=== PATIENT | female | born 1970 | race Caucasian/White ===

== ENCOUNTER 2023-08-01 08:04 | Emergency (ER) | payer OTHER ==
[2023-08-01] MEDS ORDERED: FAMOTIDINE 20 MG/2 ML VIAL IV ONE (09:10)
[2023-08-01] MEDS ORDERED: MORPHINE 4 MG/ML SYR ONE (09:10)
[2023-08-01] MEDS ORDERED: ONDANSETRON 4 MG/2 ML VIAL ONE (09:10)
[2023-08-01] MEDS ORDERED: NA CHLORIDE 0.9% 1,000 ML ONE (09:10)
[2023-08-01] MEDS ORDERED: DICYCLOMINE HCL 10 MG CAP ONE (09:10)
[2023-08-01 09:33] LABS: Specific Gravity 1.027 (1.005-1.030); Transitional Epithelial <5 /HPF (None Seen); Urine Bacteria 20-50 /HPF (<20); Urine Bilirubin NEGATIVE (Negative); Urine Blood 1+ (Negative); Urine Clarity Extremely Turbid (Clear); Urine Color Yellow (Yellow); Urine Glucose NEGATIVE (Negative); Urine Mucus Slight /HPF (None Seen); Urine Protein TRACE (Negative); Urine Urobilinogen Normal (Normal); Urine pH 5.5 (5.0-7.0)
[2023-08-01] MEDS ORDERED: CEFTRIAXONE 1000 MG/VIAL ONE (10:07)
--- NOTE | 2023-08-01 10:36 | RAD REPORT ---
EXAM DESCRIPTION: CTAbdomen Pelvis Wo Contrast - 08/01/2023 10:23 am CLINICAL HISTORY: ABD PAIN COMPARISON: No comparisons TECHNIQUE: CT of the abdomen and pelvis was performed. All CT scans are performed using dose optimization technique as appropriate and may include automated exposure control or mA/KV adjustment according to patient size. FINDINGS: Lower chest: No acute abnormality. Liver: Hepatic steatosis Biliary: No biliary ductal dilatation. Stomach: No significant focal abnormality. Duodenum: No significant focal abnormality. Pancreas: No significant abnormality. Spleen: No significant abnormality. Adrenal: No suspicious lesions. Kidney/ureter: No hydronephrosis. Bilateral punctate renal calculi. No definite ureteral calculi iden tified. There are several calcifications along the course of the left ureter that are favored to repr esent phleboliths. Retroperitoneum: No retroperitoneal adenopathy. Vascular: No aneurysm. Bowel: Scattered colonic diverticula. No evidence of acute diverticulitis. No bowel obstruction. Norm al appendix.. Liquid stool present within the ascending and transverse colon which is nonspecific. Mi ld wall thickening versus underdistention of the sigmoid colon rectum. Peritoneum: No ascites or free air. Tiny fat containing umbilical hernia. Bladder: Grossly unremarkable. Reproductive: No adnexal masses. Bones: No acute fracture. Other: n/a IMPRESSION: Bilateral nonobstructive nephrolithiasis. No definite ureteral calculi. Calcifications a long the course of the left ureter favored phleboliths. Normal appendix. Questionable mild colitis.
--- NOTE | 2023-08-01 11:46 | ER ---
Nurse's Notes [facility] Name: Nadiya Good Age: 53 yrs Sex: Female : 1970 Arrival Date: 08/01/2023 Time: 08:04 Bed 3 Private MD: Diagnosis: Unspecified renal colic;Left sided colitis Presentation: 08/01 08:17 Chief complaint: Left upper abdominal pain that radiates to left back and N/V/D since hb this morning. Denies fever. Coronavirus screen: Client presents with at least one sign or symptom that may indicate coronavirus-19. Provider contacted for isolation considerations. Ebola Screen: No symptoms or risks identified at this time. Initial Sepsis Screen: Does the patient meet any 2 criteria? No. Patient's initial sepsis screen is negative. Does the patient have a suspected source of infection? No. Patient's initial sepsis screen is negative. Risk Assessment: Do you want to hurt yourself or someone else? Patient reports no desire to harm self or others. Onset of symptoms was August 01, 2023. 08:17 Method Of Arrival: Ambulatory hb 08:17 Acuity: LUZ MARIA 3 hb Triage Assessment: 08:20 General: Appears in no apparent distress. Behavior is calm, cooperative. Pain: Pain hb currently is 3 out of 10 on a pain scale. at worst was 8 out of 10 on a pain scale. Neuro: Level of Consciousness is awake, alert, obeys commands, Oriented to person, place, time, situation. Cardiovascular: Patient's skin is warm and dry. Respiratory: Respiratory effort is even, unlabored, Respiratory pattern is regular, symmetrical. Historical: - Allergies: 08:18 No Known Allergies; hb - Home Meds: 08:18 None [Active]; hb - PMHx: 08:18 None; hb - Immunization history:: Adult Immunizations up to date. - Social history:: Smoking status: Patient denies any tobacco usage or history of. Patient/guardian denies using alcohol. Screenin:24 [facility] ED Fall Risk Assessment (Adult) History of falling in the last 3 months, ld1 including since admission No falls in past 3 months (0 pts). Abuse screen: Denies threats or abuse. Denies injuries from another. Nutritional screening: No deficits noted. Tuberculosis screening: No symptoms or risk factors identified. Assessment: 09:24 General: Appears in no apparent distress. comfortable, Behavior is calm, cooperative, ld1 appropriate for age. Pain: Complains of pain in left upper quadrant and left lower quadrant Pain does not radiate. Pain currently is 7 out of 10 on a pain scale. Quality of pain is described as sharp, throbbing, Pain began 3 hours ago. Is continuous. Neuro: Level of Consciousness is awake, alert, obeys commands, Oriented to person, place, time, situation. Cardiovascular: Capillary refill < 3 seconds Patient's skin is warm and dry. Respiratory: Airway is patent Respiratory effort is even, unlabored. GI: Abdomen is flat, non-distended, Bowel sounds present X 4 quads. Abd is soft Abdomen is tender to palpation in left upper quadrant and left lower quadrant Reports lower abdominal pain, upper abdominal pain, diarrhea. : No signs and/or symptoms were reported regarding the genitourinary system. EENT: No signs and/or symptoms were reported regarding the EENT system. Derm: No signs and/or symptoms reported regarding the dermatologic system. Musculoskeletal: No signs and/or symptoms reported regarding the musculoskeletal system. 10:17 Reassessment: Missed attempted at IV access to provide blood work. Notified ERP. ERP ld1 states "we will hold off on blood work until we receive CT results.". Vital Signs: 08:18 BP 109 / 88; Pulse 92; Resp 16; Temp 97.3(TE); Pulse Ox 97% on R/A; Weight 67.59 kg; hb Height 5 ft. 4 in. ; Pain 3/10; 09:24 BP 124 / 86; Pulse 83; Resp 18; Pulse Ox 98% on R/A; Pain 7/10; ld1 11:10 BP 112 / 72; Pulse 71; Resp 18; Pulse Ox 97% on R/A; ld1 08:18 Body Mass Index 25.58 (67.59 kg, 162.56 cm) hb 08:18 Pain Scale: Adult hb 09:24 Pain Scale: Adult ld1 ED Course: 08:12 Patient arrived in ED. mg5 08:14 Daniella Bardales FNP-C is PHCP. snw 08:14 Hipolito Berry MD is Attending Physician. snw 08:15 Daniella Bardales FNP-C is PHCP. snw 08:18 Triage completed. hb 08:18 Arm band placed on. hb 09:24 Nathalia Rodriguez, RN is Primary Nurse. ld1 09:24 Patient has correct armband on for positive identification. Placed in gown. Bed in low ld1 position. Call light in reach. Side rails up X2. Pulse ox on. NIBP on. Door closed. Noise minimized. Warm blanket given. 09:24 Urinalysis w/ reflexes Sent. ld1 09:24 Missed attempt(s): 20 gauge in left antecubital area. ld1 09:24 Missed attempt(s): 22 gauge in right forearm. ld1 09:24 No provider procedures requiring assistance completed. ld1 10:17 Missed attempt(s): 22 gauge in right antecubital area. ld1 10:24 Abdomen In Process Unspecified. EDMS Administered Medications: 09:24 Drug: Dicyclomine PO 20 mg PO once Route: PO; ld1 09:38 Drug: NS 0.9% IV 1000 ml IV at 1 bolus Per protocol; 1000 mL bolus Route: IV; Rate: 1 ld1 bolus; Site: left wrist; 09:38 Drug: Famotidine IVP 20 mg IVP once; dilute with 10 mL 0.9% NaCl; give over 2 minutes ld1 Route: IVP; Site: left wrist; 09:38 Drug: Ondansetron IVP 4 mg IVP once; over 2 minutes Route: IVP; Site: left wrist; ld1 09:38 Drug: morphine IVP or IV 4 mg IVP once over 4 mins Route: IVP; Infused Over: 4 mins; ld1 Site: left wrist; 09:54 Drug: Rocephin IV 1 grams IV at calculated rate once; Given slow IV push per pharmacy ld1 instructions Route: IV; Rate: calculated rate; Site: left wrist; Medication: 09:24 VIS not applicable for this client. ld1 Outcome: 11:45 Discharge ordered by . miguel 12:30 Patient left the ED. hb Signatures: Dispatcher [employer] EDMS Daniella Bardales FNP-C LINING MARKER-Csnw Chanelle Roberto RN RN Nathalia Rodriguez, IMELDA RN ld1 Maile Agrawal mg5 Corrections: (The following items were deleted from the chart) 08:20 08:17 Chief complaint: Left upper abdominal pain and N/V/D since this morning. Denies hb fever. hb
--- NOTE | 2023-08-01 11:46 | EDPHYS ---
Physician Documentation [facility] Name: Nadiya Good Age: 53 yrs Sex: Female : 1970 Arrival Date: 08/01/2023 Time: 08:04 Bed 3 Private MD: ED Physician Hipolito Berry HPI: 08/01 10:10 This 53 yrs old Female presents to ER via Ambulatory with complaints of Abdominal Pain. snw 10:10 The patient presents with abdominal pain in the epigastric area, in the upper abdomen. snw Onset: The symptoms/episode began/occurred suddenly, this am, awoke pt from sleep. The symptoms do not radiate. Associated signs and symptoms: Pertinent positives: nausea and vomiting, diarrhea. The symptoms are described as crampy. Severity of pain: At its worst the pain was moderate severe. The patient has not experienced similar symptoms in the past. The patient has not recently seen a physician. Historical: - Allergies: 08:18 No Known Allergies; hb - Home Meds: 08:18 None [Active]; hb - PMHx: 08:18 None; hb - Immunization history:: Adult Immunizations up to date. - Social history:: Smoking status: Patient denies any tobacco usage or history of. Patient/guardian denies using alcohol. ROS: 10:09 Constitutional: Negative for fever, chills, and weight loss, Eyes: Negative for injury, snw pain, redness, and discharge, ENT: Negative for injury, pain, and discharge, Neck: Negative for injury, pain, and swelling, Cardiovascular: Negative for chest pain, palpitations, and edema, Respiratory: Negative for shortness of breath, cough, wheezing, and pleuritic chest pain, Back: Negative for injury and pain, : Negative for injury, bleeding, discharge, and swelling, MS/Extremity: Negative for injury and deformity, Skin: Negative for injury, rash, and discoloration, Neuro: Negative for headache, weakness, numbness, tingling, and seizure, Psych: Negative for depression, anxiety, suicide ideation, homicidal ideation, and hallucinations, 10:09 Abdomen/GI: Positive for abdominal pain, nausea, vomiting, and diarrhea, abdominal cramps, of the epigastric area, right upper quadrant and left upper quadrant, Exam: 10:09 Constitutional: This is a well developed, well nourished patient who is awake, alert, snw and in no acute distress. Head/Face: Normocephalic, atraumatic. Eyes: Pupils equal round and reactive to light, extra-ocular motions intact. Lids and lashes normal. Conjunctiva and sclera are non-icteric and not injected. Cornea within normal limits. Periorbital areas with no swelling, redness, or edema. ENT: Nares patent. No nasal discharge, no septal abnormalities noted. Tympanic membranes are normal and external auditory canals are clear. Oropharynx with no redness, swelling, or masses, exudates, or evidence of obstruction, uvula midline. Mucous membranes moist. Neck: Trachea midline, no thyromegaly or masses palpated, and no cervical lymphadenopathy. Supple, full range of motion without nuchal rigidity, or vertebral point tenderness. No Meningismus. Chest/axilla: Normal chest wall appearance and motion. Nontender with no deformity. No lesions are appreciated. Cardiovascular: Regular rate and rhythm with a normal S1 and S2. No gallops, murmurs, or rubs. Normal PMI, no JVD. No pulse deficits. Respiratory: Lungs have equal breath sounds bilaterally, clear to auscultation and percussion. No rales, rhonchi or wheezes noted. No increased work of breathing, no retractions or nasal flaring. Back: No spinal tenderness. No costovertebral tenderness. Full range of motion. Skin: Warm, dry with normal turgor. Normal color with no rashes, no lesions, and no evidence of cellulitis. MS/ Extremity: Pulses equal, no cyanosis. Neurovascular intact. Full, normal range of motion. Neuro: Awake and alert, GCS 15, oriented to person, place, time, and situation. Cranial nerves II-XII grossly intact. Motor strength 5/5 in all extremities. Sensory grossly intact. Cerebellar exam normal. Normal gait. Psych: Awake, alert, with orientation to person, place and time. Behavior, mood, and affect are within normal limits. 10:09 Abdomen/GI: Inspection: abdomen appears normal, Bowel sounds: normal, Palpation: mild abdominal tenderness, moderate abdominal tenderness, in the epigastric area, right upper quadrant and left upper quadrant, Vital Signs: 08:18 BP 109 / 88; Pulse 92; Resp 16; Temp 97.3(TE); Pulse Ox 97% on R/A; Weight 67.59 kg; hb Height 5 ft. 4 in. ; Pain 3/10; 09:24 BP 124 / 86; Pulse 83; Resp 18; Pulse Ox 98% on R/A; Pain 7/10; ld1 11:10 BP 112 / 72; Pulse 71; Resp 18; Pulse Ox 97% on R/A; ld1 08:18 Body Mass Index 25.58 (67.59 kg, 162.56 cm) hb 08:18 Pain Scale: Adult hb 09:24 Pain Scale: Adult ld1 MDM: 08:22 Patient medically screened. snw 11:48 Differential diagnosis: cholecystitis, diverticulitis, gastritis, non-specific abd snw pain, pancreatitis, Pyelonephritis, Ureterolithiasis, urinary tract infection. 11:48 Data reviewed: vital signs, nurses notes. I considered the following discharge snw prescriptions or medication management in the emergency department Medications were administered in the Emergency Department. See MAR. Counseling: I had a detailed discussion with the patient and/or guardian regarding the historical points, exam findings, and any diagnostic results supporting the discharge/admit diagnosis, lab results, radiology results, the need for outpatient follow up, for definitive care, to return to the emergency department if symptoms worsen or persist or if there are any questions or concerns that arise at home. Special discussion: Based on the history and exam findings, there is no indication for further emergent testing or inpatient evaluation. I discussed with the patient/guardian the need to see the primary care provider for further evaluation of the symptoms. 08/01 08:23 Order name: Urinalysis w/ reflexes; Complete Time: 09:47 snw 08/01 10:24 Order name: Abdomen ; Complete Time: 10:40 EDMS 08/01 08:23 Order name: IV Saline Lock; Complete Time: 09:38 snw Administered Medications: 09:24 Drug: Dicyclomine PO 20 mg PO once Route: PO; ld1 09:38 Drug: NS 0.9% IV 1000 ml IV at 1 bolus Per protocol; 1000 mL bolus Route: IV; Rate: 1 ld1 bolus; Site: left wrist; 09:38 Drug: Famotidine IVP 20 mg IVP once; dilute with 10 mL 0.9% NaCl; give over 2 minutes ld1 Route: IVP; Site: left wrist; 09:38 Drug: Ondansetron IVP 4 mg IVP once; over 2 minutes Route: IVP; Site: left wrist; ld1 09:38 Drug: morphine IVP or IV 4 mg IVP once over 4 mins Route: IVP; Infused Over: 4 mins; ld1 Site: left wrist; 09:54 Drug: Rocephin IV 1 grams IV at calculated rate once; Given slow IV push per pharmacy ld1 instructions Route: IV; Rate: calculated rate; Site: left wrist; Disposition: 16:56 Co-signature as Attending Physician, Hipolito Berry MD I reviewed the patient's care rn provided by the Advanced Practice Provider and agree with the diagnosis and treatment plan. Disposition Summary: 08/01/23 11:45 Discharge Ordered Notes: Location: Home snw Condition: Stable snw Diagnosis - Unspecified renal colic snw - Left sided colitis snw Followup: snw - With: Emergency Department - When: As needed - Reason: Worsening of condition Followup: snw - With: Private Physician - When: 2 - 3 days - Reason: Recheck today's complaints, Continuance of care, Re-evaluation by your physician Discharge Instructions: - Discharge Summary Sheet snw - Kidney Stones snw - Renal Colic snw - Dietary Guidelines to Help Prevent Kidney Stones snw - Rehydration, Adult snw - Colitis snw Forms: - Medication Reconciliation Form snw - Thank You Letter snw - Antibiotic Education snw - Prescription Opioid Use snw - Patient Portal Instructions snw - Leadership Thank You Letter snw Prescriptions: - Cipro 500 mg Oral Tablet - take 1 tablet ORAL route every 12 hours for 7 days; 14 tablet; Refills: 0, snw Product Selection Permitted - Diclofenac Sodium 75 mg Oral tablet, delayed release (enteric coated) - take 1 tablet ORAL route 2 times per day; 30 tablet; Refills: 0, Product snw Selection Permitted - promethazine 25 mg Oral tablet - take 1 tablet ORAL route every 6 hours As needed; 20 tablet; Refills: 0, snw Product Selection Permitted - dicyclomine 20 mg Oral tablet - take 1 tablet ORAL route 3 times per day; 21 tablet; Refills: 0, Product snw Selection Permitted Signatures: Dispatcher [employer] EDDaniella Torres, KATIUSKA-C RACE ENGINE BUILDER-Csnw Hipolito Berry MD MD rn Baxter, Heather RN RN Nathalia Murray RN RN ld1 Corrections: (The following items were deleted from the chart) 10:24 09:49 Abdomen Pelvis W Con+CT.RAD.BRZ ordered. EDMS EDMS
[2023-08-01 12:41] VITALS: TEMP 97.3
[2023-08-01 12:44] VITALS: BP 112/72; O2SAT 97
== END 2023-08-01 12:30 | disposition home or self-care (01) ==
LOC: ER 08:04
DX: K51.50 Left sided colitis without complications (principal); N23 Unspecified renal colic
CPT/HCPCS: 81001; 74176; 96375; 96374; 99284; J2405; J7030; J0696